=== PATIENT | male | born 1945 | race Caucasian/White ===

== ENCOUNTER 2017-06-24 18:25 | Inpatient (IN) | payer OTHER ==
[~2017-06-24] VITALS: Ht 165.1 cm; Wt 73.5 kg
[~2017-06-24 18:25] MED LIST: AMARYL PO; AVAPRO300 MG; CARDURA8 MG; CATAPRES0.2 MG; COLACE100 MG PO; DICY20TA; OMEPRAZOLE20 M1; PEPCID20 MG PO; PEPCID40 MG PO; PROTONIX40 MG PO
== END 2017-06-29 10:02 | disposition home or self-care (01) | DRG 391 ==
LOC: ER 18:25 → MEDJ 06-25 10:15 → MEDI 06-25 10:15 → MEDJ 06-25 11:55
PROC: BW40ZZZ Ultrasonography of Abdomen (ICD-10-PCS; principal; 2017-06-25)
DX: K29.00 Acute gastritis without bleeding (principal); K85.10 Biliary acute pancreatitis without necrosis or infection; K21.9 Gastro-esophageal reflux disease without esophagitis; K59.09 Other constipation

== ENCOUNTER 2017-09-03 21:44 | Emergency (ER) | payer OTHER ==
[~2017-09-03] VITALS: Ht 165.1 cm; Wt 74.8 kg
[2017-09-04] MEDS ORDERED: ZANTAC300 MG PO (02:32)
== END 2017-09-04 02:30 | disposition home or self-care (01) ==
LOC: ER 21:44
DX: K29.70 Gastritis, unspecified, without bleeding (principal)

== ENCOUNTER 2018-06-01 20:43 | Inpatient (IN) | payer OTHER ==
[~2018-06-01] VITALS: Ht 152.4 cm; Wt 5.0 kg
[~2018-06-01 20:43] MED LIST changes: +ZANTAC300 MG PO
[2018-06-05] MEDS ORDERED: GLIMEPIRIDE2 MG PO (09:53)
== END 2018-06-07 10:35 | disposition home or self-care (01) | DRG 440 ==
LOC: ER 20:43 → SEC-K 06-02 07:22 → MEDJ 06-02 07:22
PROC: BF37ZZZ Magnetic Resonance Imaging (MRI) of Pancreas (ICD-10-PCS; principal; 2018-06-02)
DX: K85.80 Other acute pancreatitis without necrosis or infection (principal); K21.9 Gastro-esophageal reflux disease without esophagitis; K29.60 Other gastritis without bleeding; I10 Essential (primary) hypertension; E11.9 Type 2 diabetes mellitus without complications; K59.09 Other constipation; K85.10 Biliary acute pancreatitis without necrosis or infection; K80.20 Calculus of gallbladder without cholecystitis without obstruction; K30 Functional dyspepsia

== ENCOUNTER 2018-09-24 22:40 | Inpatient (IN) | payer OTHER ==
[~2018-09-24] VITALS: Ht 165.1 cm; Wt 72.6 kg
[~2018-09-24 22:40] MED LIST changes: +GLIMEPIRIDE2 MG PO
--- NOTE | 2018-09-24 23:16 | NUR ---
PT ALERTA Y ORIENTADO X3 ESFERAS QUIEN REFIERE DOLOR ABOMINAL LUQ DESDE LA MANANA DE HOY. PT ANADE BORJAS PADECIDO DE PANCREATITIS MARYJO VARIOS ANOS, LA ULTIMA VEZ ADMITIDO POR DR CHRISTIAN EL PASADO DICIEMBRE 2017. PT REFIERE SON LOS MISMOS SINTOMAS DE NAIMA ULTIMA VEZ.
--- NOTE | 2018-09-24 23:56 | NUR ---
PT ALERTA Y ORIENTADO X3 ESFERAS SE LE ORIENTA SOBRE TX Y REFIERE ENTEDER. SE FABIANA MUESTRAS DE ANTONIO Y VENOPUNCION CON TECNICAS ASEPTICAS. PT [place]. SE ADMINISTRAN MEDICAMENTOS ORDENADOS.
== END 2018-09-29 10:04 | disposition home or self-care (01) | DRG 440 ==
LOC: ER 22:40 → MEDI 09-25 06:25 → MEDJ 09-25 06:25 → MEDI 09-29 10:04
PROVIDERS: ADMIT Internal Medicine Cardiovascular Disease
PROC: BF37ZZZ Magnetic Resonance Imaging (MRI) of Pancreas (ICD-10-PCS; principal; 2018-09-25)
PROC: BW40ZZZ Ultrasonography of Abdomen (ICD-10-PCS; 2018-09-25)
DX: K85.10 Biliary acute pancreatitis without necrosis or infection (principal); I10 Essential (primary) hypertension; E11.9 Type 2 diabetes mellitus without complications; K21.9 Gastro-esophageal reflux disease without esophagitis; K30 Functional dyspepsia; K59.09 Other constipation

== ENCOUNTER 2019-01-08 07:34 | Outpatient (CLI) | payer OTHER | END 2019-01-08 07:38 | disposition home or self-care (01) | LOC: SONOGRAMA 07:34 | DX: E04.2 Nontoxic multinodular goiter (principal) ==

== ENCOUNTER 2019-02-26 05:48 | Emergency (ER) | payer OTHER ==
[~2019-02-26] VITALS: Ht 165.1 cm; Wt 74.4 kg
== END 2019-02-26 14:30 | disposition home or self-care (01) ==
LOC: ER 05:48
DX: K21.9 Gastro-esophageal reflux disease without esophagitis (principal)

== ENCOUNTER 2020-11-18 07:26 | Outpatient (CLI) | payer OTHER | END 2020-11-18 07:36 | disposition home or self-care (01) | LOC: RX STUDY 07:26 | PROVIDERS: ATTEND Otolaryngology | DX: R13.14 Dysphagia, pharyngoesophageal phase (principal) ==

== ENCOUNTER 2022-10-14 08:10 | Outpatient (CLI) | payer OTHER | END 2022-10-14 08:16 | disposition home or self-care (01) | LOC: SONOGRAMA 08:10 | PROVIDERS: ATTEND Pathology Anatomic Pathology & Clinical Pathology | DX: D34 Benign neoplasm of thyroid gland (principal); E04.9 Nontoxic goiter, unspecified ==